=== PATIENT | female | born 1995 | race Caucasian/White ===

== ENCOUNTER → 2018-10-14 11:33 | Observation (INO) ==
[2018-10-14 09:57] LABS: Bilirubin,Urine Negative (Negative); Blood,Urine Negative (Negative); Clarity,Urine Clear (Clear); Color,Urine Yellow (Yellow); Glucose,Urine (UA) Normal (Normal); Ketones,Urine Negative (Negative); Leukocyte Esterase,Urine Negative (Negative); Nitrite,Urine Negative (Negative); PH,Urine 6.5 pH Units (5.0-8.0); Protein,Urine Negative (Neg-Trace); Urobilinogen,Urine Normal (Normal)
[2018-10-14 10:05] LABS: Amphetamine Screen,Urine Negative ng/mL (Cutoff=1000); Barbiturate Screen,Urine Negative ng/mL (Cutoff=200); Benzodiazepines Screen,Urine Negative ng/mL (Cutoff=200); Cannabinoid Screen,Urine Negative ng/mL (Cutoff = 50); Cocaine Screen,Urine Negative ng/mL (Cutoff= 300); Opiate Screen,Urine Negative ng/mL (Cutoff=300); Phencyclidine Screen,Urine Negative ng/mL (Cutoff=25)
--- NOTE | 2018-10-14 11:19 | Discharge Summary ---
Date of Encounter: 10/14/18 Time of Encounter: 11:18 - Discharge Diagnosis (1) 26 weeks gestation of Priority: Primary Status: Acute Comments: Patient admitted for observation UA WNL NO contractions noted some uterine irritability noted Patient reports the cramping has stopped Data Procedures and tests throughout hospitalization: Laboratory Tests 10/14/18 10/14/18 09:30 09:30 Urine Color Yellow Urine Clarity Clear Urine pH 6.5 Ur Specific Peck 1.010 Urine Protein Negative Urine Glucose (UA) Normal Urine Ketones Negative Urine Blood Negative Urine Nitrite Negative Urine Bilirubin Negative Urine Urobilinogen Normal Ur Leukocyte Esterase Negative Ur Culture Indicated? NO Urine Opiates Screen Negative Ur Barbiturates Screen Negative Ur Phencyclidine Scrn Negative Ur Amphetamines Screen Negative U Benzodiazepines Scrn Negative Urine Cocaine Screen Negative U Marijuana (THC) Screen Negative Ur Drug Screen Interp See Below Labs on day of discharge: Labs from last 24 hours 10/14/18 10/14/18 09:30 09:30 Urine Color Yellow Urine Clarity Clear Urine pH 6.5 Ur Specific Peck 1.010 Urine Protein Negative Urine Glucose (UA) Normal Urine Ketones Negative Urine Blood Negative Urine Nitrite Negative Urine Bilirubin Negative Urine Urobilinogen Normal Ur Leukocyte Esterase Negative Ur Culture Indicated? NO Urine Opiates Screen Negative Ur Barbiturates Screen Negative Ur Phencyclidine Scrn Negative Ur Amphetamines Screen Negative U Benzodiazepines Scrn Negative Urine Cocaine Screen Negative U Marijuana (THC) Screen Negative Ur Drug Screen Interp See Below Date of admission: 10/14/18 09:17 Discharging clinician: Tamara Villalba Anticipated date of discharge: 10/14/18 - Patient Status Disposition: Home, Self-Care Condition: Good Functional capacity at discharge: independent ambulation - Discharge Instructions Follow Up With: Rachel Cotto DO [Partnered Physician] - - Diet and Activity Activity: increase activity as tolerated Diet: regular diet Hospital Course MERCHANDISING LEAD Hospital course: Patient is a 22 y/o at 26w0d that presents to labor and delivery with complaints of cramping that started last night after intercourse. Patient reports cramping continued through the night but she was able to sleep. Patient denies LOF or VB. Patient reports +FM. After being monitored patient reports cramping seems to be gone at this time. Time Attestation: Total time spent providing and/or coordinating discharge services: Time Spent: Less than 30 minutes Exam - Constitutional General appearance IM: A&O X 3, pleasant, answers questions appropriately - Respiratory Respiratory exam: Present: CTAB - Cardiovascular Cardiovascular exam IM: Present: RRR, +S1, +S2 - GI/Abdominal GI/Abdominal exam IM: normal bowel sounds - Extremities Exam Extremities exam IM: Present: full ROM, normal capillary refill, normal inspection - Neurological Exam Neurological exam: alert, oriented X3, reflexes normal - Other Additional findings: FHR 140 bpm moderate variability No contractions noted. Appropriate for gestational age - VTE Reasons for not Prescribing Prophylaxis: Treatment not Indicated - Low risk for VTE
== END | disposition home or self-care (01) ==
LOC: 1NENULAB
PROVIDERS: ADMIT Obstetrics & Gynecology; ATTEND Obstetrics & Gynecology

== ENCOUNTER → 2018-11-28 16:50 | Observation (INO) ==
[2018-11-28 14:52] LABS: Bilirubin,Urine Negative (Negative); Blood,Urine Negative (Negative); Color,Urine Yellow (Yellow); Glucose,Urine (UA) Normal (Normal); Ketones,Urine Negative (Negative); Leukocyte Esterase,Urine Small (Negative); Nitrite,Urine Negative (Negative); PH,Urine 6.5 pH Units (5.0-8.0); Protein,Urine Trace mg/dL (Neg-Trace); Specific Gravity,Urine 1.016 (1.010-1.025); Urobilinogen,Urine Normal (Normal)
[2018-11-28 14:54] LABS: Bacteria,Urine Moderate per hpf (None-Few); Hyaline Casts,Urine None Seen per lpf (None-Few); Squamous Epithelial Cell,Urine Many per lpf (None-Few)
[2018-11-28 15:01] LABS: Clarity,Urine Hazy (Clear)
[2018-11-28 15:08] LABS: Amphetamine Screen,Urine Negative ng/mL (Cutoff=1000); Barbiturate Screen,Urine Negative ng/mL (Cutoff=200); Benzodiazepines Screen,Urine Negative ng/mL (Cutoff=200); Cannabinoid Screen,Urine Negative ng/mL (Cutoff = 50); Cocaine Screen,Urine Negative ng/mL (Cutoff= 300); Opiate Screen,Urine Negative ng/mL (Cutoff=300); Phencyclidine Screen,Urine Negative ng/mL (Cutoff=25)
--- NOTE | 2018-11-28 16:33 | OB/GYN Progress Note ---
Date of Encounter: 11/28/18 Time of Encounter: 16:30 - Assessment and Plan (1) 32 weeks gestation of Current Visit: Yes Status: Acute Educated on proper hydration and kick counts. Discharge home with return precautions. (2) Nausea Current Visit: Yes Status: Acute No vomiting. Nausea has resolved. (3) Dizziness Current Visit: Yes Status: Acute Pt reports dizzy spells this am but none since hydrating in triage. (4) Tachycardia Current Visit: Yes Status: Acute Pt reports tachycardia at home on her apple watch but she is not sure how accurate that is. Apical pulse 86 and regular at this time. Pt afebrile. (5) Gestational diabetes Current Visit: Yes Status: Acute Pt reports fasting blood sugars in the 80s. Report blood sugar 2 hours after eating never goes above 100. Qualifiers: Gestational diabetes mellitus control: diet-controlled Trimester: third trimester Qualified Code(s): O24.410 - Gestational diabetes mellitus in , diet controlled Subjective - Subjective Principal diagnosis: Nausea, dizziness, tachycardia Interval history: 23 y/o at 32w1d who presented with c/o of nausea, dizziness and feeling that her heart is racing that began this morning. Pt states she has been drinking water but "probably not enough". Reports dizziness is not associated with position change and she just feels "run down". Denies Contractions, LOF, or VB. Reports good FM. Antepartum ROS: new complaints, movement normal, no loss of fluid, no vaginal bleeding, no contractions Objective - Vital Signs Vital Signs: Intake and Output 11/28/18 11/28/18 11/28/18 07:59 15:59 23:59 Other: Weight 105.5 kg Patient Weight 11/28/18 23:59 Weight 105.5 kg - Exam FHR: category 1 FHR comments: NST reactive, FHR baseline 130bpm Auscultation: bilateral: normal Abdomen: Present: normal appearance, soft, gravid - Labs Labs: Abnormal lab results Urine Clarity Hazy (Clear) A 11/28/18 14:37 Ur Leukocyte Esterase Small (Negative) H 11/28/18 14:37 Urine Microscopic RBC 5-15 per hpf (0-3) H 11/28/18 14:37 Urine Microscopic WBC 5-15 per hpf (0-3) H 11/28/18 14:37 Ur Squamous Epith Cells Many per lpf (None-Few) H 11/28/18 14:37 Urine Bacteria Moderate per hpf (None-Few) H 11/28/18 14:37 Ur Culture Indicated? NO. (NO) A 11/28/18 14:37
== END | disposition home or self-care (01) ==
LOC: 1NENULAB
PROVIDERS: ADMIT Registered Nurse; ATTEND Registered Nurse

== ENCOUNTER → 2018-12-31 17:38 | Observation (INO) ==
[2018-12-31 14:36] LABS: Bilirubin,Urine Negative (Negative); Blood,Urine Negative (Negative); Clarity,Urine Cloudy (Clear); Color,Urine Yellow (Yellow); Glucose,Urine (UA) Normal (Normal); Ketones,Urine Negative (Negative); Leukocyte Esterase,Urine Moderate (Negative); Nitrite,Urine Negative (Negative); PH,Urine 6.5 pH Units (5.0-8.0); Protein,Urine Trace mg/dL (Neg-Trace); Specific Gravity,Urine 1.019 (1.010-1.025); Urobilinogen,Urine Normal (Normal)
[2018-12-31 14:40] LABS: Bacteria,Urine Moderate per hpf (None-Few); Hyaline Casts,Urine None Seen per lpf (None-Few); RBC,Urine 0-3 per hpf (0-3); Squamous Epithelial Cell,Urine Many per lpf (None-Few)
[2018-12-31 14:52] LABS: Basophils % 0.3 %; Eosinophils # 0.3 K/mcL (0.0-0.6); Eosinophils % 2.5 %; Hematocrit 34.2 % (35.3-44.9); Hemoglobin 11.5 g/dL (11.5-15.4); Immature Granulocytes % 0.5 % (0-4); Lymphocytes % 19.6 %; Mean Corpuscular HGB Conc 33.6 g/dL (31.6-35.5); Mean Corpuscular Volume 86.4 fL (83.0-100.0); Mean Platelet Volume 10.9 fL (9.4-12.4); Monocytes # 0.5 K/mcL (0.0-1.3); Monocytes % 4.6 %; Neutrophils # 7.4 K/mcL (1.6-8.9); Platelet Count 247 K/mcL (140-400); Red Blood Count 3.96 M/mcL (3.82-4.97); Red Cell Distribution Width 14.2 % (11.5-14.5); Segmented Neutrophils % 72.5 %
[2018-12-31 15:11] LABS: Amphetamine Screen,Urine Negative ng/mL (Cutoff=1000); Barbiturate Screen,Urine Negative ng/mL (Cutoff=200); Benzodiazepines Screen,Urine Negative ng/mL (Cutoff=200); Cannabinoid Screen,Urine Negative ng/mL (Cutoff = 50); Cocaine Screen,Urine Negative ng/mL (Cutoff= 300); Opiate Screen,Urine Negative ng/mL (Cutoff=300); Phencyclidine Screen,Urine Negative ng/mL (Cutoff=25)
[2018-12-31 15:12] VITALS: BP 136/85
[2018-12-31 15:42] LABS: Protein/Creatinine Ratio,Urine 0.16 mg/mg (0.00-0.20)
[2018-12-31 16:01] LABS: Alanine Aminotransferase 12 Units/L (7-52); Aspartate Amino Transferase 22 Units/L (13-39); BUN/Creatinine Ratio 13 (6-26); Blood Urea Nitrogen 8 mg/dL (6-20); Lactate Dehydrogenase 141 Units/L (140-271); Uric Acid 6.6 mg/dL (2.3-7.6); eGFR For Non-African Americans > 60 (> 60)
--- NOTE | 2018-12-31 17:18 | OB/GYN Progress Note ---
Date of Encounter: 12/31/18 Time of Encounter: 17:16 - Assessment and Plan (1) and not yet delivered in third trimester Current Visit: Yes Status: Acute (2) 36 weeks gestation of Current Visit: Yes Status: Acute (3) Hypertension affecting in third trimester Current Visit: Yes Status: Acute We will start patient on labetalol 100 mg twice a day first dose here on labor and delivery she will follow up with the end of the week for blood pressure check and visit. PIH precautions have been given to the patient. Subjective - Subjective Interval history: Patient is a 23-year-old 3 para 1011 at 36-6/7 weeks who presented to labor and delivery complaining of contractions headache and not feeling well. Patient has a history of precancer the first and she states this started the same way with persistent headache patient states she was at work started having severe pain to the point she could not walk they told her she needs come to the hospital to be evaluated. Upon arrival to labor and delivery patient was not having any contractions blood pressure is slightly elevated but she had this persistent headache that was not going away PIH labs were obtained and the patient they are all normal protein creatinine ratio was also normal. Blood pressures were basically normal 130s over 70s to as high as 140/90 nothing any higher. Patient states that she was induced at 37 weeks with her last due to severe preeclampsia. At this point patient does not show any signs of preeclampsia she is beginning to show some early signs of gestational hypertension of recommended starting on some labetalol. If blood pressure continues to be elevated with the labetalol she can then possibly be induced due to gestational hypertension not medically managed. Patient is already received Tylenol for headache. She not complaining of any contractions at this time no leaking of fluid no vaginal bleeding discharge itching or burning. Antepartum ROS: contractions, other (headache) Objective - Vital Signs Vital Signs: Vital Signs Pulse Resp BP 12/31/18 16:26 111 136/85 12/31/18 16:07 100 141/90 12/31/18 15:47 104 134/89 12/31/18 15:26 104 134/86 12/31/18 15:07 114 136/85 12/31/18 14:49 100 142/94 12/31/18 14:41 102 146/98 12/31/18 14:12 96 135/91 12/31/18 13:54 102 18 135/86 Intake and Output 12/31/18 12/31/18 12/31/18 07:59 15:59 23:59 Other: Weight 109.7 kg Patient Weight 12/31/18 23:59 Weight 109.7 kg - Exam FHR: category 1 FHR comments: heart tones 140s reactive occasional contractions seen Auscultation: bilateral: normal Abdomen: Present: normal appearance, soft, gravid Uterus: Present: normal Comments: No cervical exam performed patient is not emilia and states was only 1 cm last week did not feel a need to check her at this time since she is not emilia. - Labs Labs: Abnormal lab results Hct 34.2 % (35.3-44.9) L 12/31/18 14:08 Urine Clarity Cloudy (Clear) A 12/31/18 14:08 Ur Leukocyte Esterase Moderate (Negative) H 12/31/18 14:08 Urine Microscopic WBC 5-15 per hpf (0-3) H 12/31/18 14:08 Ur Squamous Epith Cells Many per lpf (None-Few) H 12/31/18 14:08 Urine Bacteria Moderate per hpf (None-Few) H 12/31/18 14:08 Ur Culture Indicated? NO. (NO) A 12/31/18 14:08 Urine Total Protein 22 mg/dL (1-14) H 12/31/18 14:08
[~2018-12-31 17:38] MED LIST: Acetaminophen 325 MG TABLET PO ONE
== END | disposition home or self-care (01) ==
LOC: 1NENULAB
PROVIDERS: ADMIT Advanced Practice Midwife; ATTEND Advanced Practice Midwife

== ENCOUNTER → 2019-01-04 13:37 | Observation (INO) ==
[2019-01-04 12:17] LABS: Basophils % 0.4 %; Eosinophils # 0.2 K/mcL (0.0-0.6); Eosinophils % 2.1 %; Hematocrit 35.3 % (35.3-44.9); Hemoglobin 11.8 g/dL (11.5-15.4); Immature Granulocytes % 0.4 % (0-4); Lymphocytes # 1.9 K/mcL (0.6-4.6); Lymphocytes % 18.4 %; Mean Corpuscular HGB Conc 33.4 g/dL (31.6-35.5); Mean Corpuscular Hemoglobin 28.9 pg (28.0-33.3); Mean Corpuscular Volume 86.5 fL (83.0-100.0); Mean Platelet Volume 10.6 fL (9.4-12.4); Monocytes # 0.7 K/mcL (0.0-1.3); Monocytes % 6.7 %; Neutrophils # 7.4 K/mcL (1.6-8.9); Platelet Count 254 K/mcL (140-400); Red Blood Count 4.08 M/mcL (3.82-4.97); Red Cell Distribution Width 14.3 % (11.5-14.5)
[2019-01-04 12:37] LABS: Alanine Aminotransferase 12 Units/L (7-52); Aspartate Amino Transferase 21 Units/L (13-39); BUN/Creatinine Ratio 14 (6-26); Blood Urea Nitrogen 8 mg/dL (6-20); Lactate Dehydrogenase 131 Units/L (140-271); Uric Acid 6.5 mg/dL (2.3-7.6); eGFR For Non-African Americans > 60 (> 60)
[2019-01-04 12:42] LABS: Protein/Creatinine Ratio,Urine 0.19 mg/mg (0.00-0.20)
[2019-01-04 12:43] LABS: Amphetamine Screen,Urine Negative ng/mL (Cutoff=1000); Barbiturate Screen,Urine Negative ng/mL (Cutoff=200); Benzodiazepines Screen,Urine Negative ng/mL (Cutoff=200); Cannabinoid Screen,Urine Negative ng/mL (Cutoff = 50); Cocaine Screen,Urine Negative ng/mL (Cutoff= 300); Opiate Screen,Urine Negative ng/mL (Cutoff=300); Phencyclidine Screen,Urine Negative ng/mL (Cutoff=25)
--- NOTE | 2019-01-04 13:29 | Discharge Summary ---
Date of Encounter: 01/04/19 Time of Encounter: 13:29 - Discharge Diagnosis (1) 37 weeks gestation of Priority: Primary Status: Acute Comments: admitted for observation for PIH evaluation (2) Proteinuria affecting in third trimester Priority: Secondary Status: Acute Comments: PIH labs and BPs WNL Discussed Lab results with Dr. Cotto (3) NST (non-stress test) reactive on surveillance Priority: Secondary Status: Acute Comments: FHR 125 bpm moderate variability +15x15 accels no decels noted. Cat. 1 tracing. - Discharge Medications Home Medications: Aspirin [[place] Aspirin EC] 1 tab PO DAILY 11/28/18 [History] Pnv95/Ferrous Fumarate/FA [ Vitamin Tablet] 1 tab PO DAILY 11/28/18 [History] Labetalol [Trandate] 100 mg PO BID #60 tablet 12/31/18 [Rx] Allergies/Adverse Reactions: Allergy/AdvReac Type Severity Reaction Status Date / Time No Known Allergies Allergy Verified 11/28/18 14:35 Data Procedures and tests throughout hospitalization: Laboratory Tests 01/04/19 01/04/19 01/04/19 11:49 11:56 11:56 WBC 10.2 RBC 4.08 Hgb 11.8 Hct 35.3 MCV 86.5 MCH 28.9 MCHC 33.4 RDW 14.3 Plt Count 254 MPV 10.6 Immature Gran % 0.4 Seg Neutrophils % 72.0 Lymphocytes % 18.4 Monocytes % 6.7 Eosinophils % 2.1 Basophils % 0.4 Neutrophils # 7.4 Lymphocytes # 1.9 Monocytes # 0.7 Eosinophils # 0.2 Basophils # 0.0 BUN Creatinine Est GFR ( Amer) Est GFR (Non-Af Amer) BUN/Creatinine Ratio Uric Acid AST ALT Lactate Dehydrogenase Urine Creatinine 233 Protein/Creatinin Ratio 0.19 Urine Total Protein 43 H Urine Opiates Screen Negative Ur Barbiturates Screen Negative Ur Phencyclidine Scrn Negative Ur Amphetamines Screen Negative U Benzodiazepines Scrn Negative Urine Cocaine Screen Negative U Marijuana (THC) Screen Negative Ur Drug Screen Interp See Below 01/04/19 11:56 WBC RBC Hgb Hct MCV MCH MCHC RDW Plt Count MPV Immature Gran % Seg Neutrophils % Lymphocytes % Monocytes % Eosinophils % Basophils % Neutrophils # Lymphocytes # Monocytes # Eosinophils # Basophils # BUN 8 Creatinine 0.58 L Est GFR ( Amer) > 60 Est GFR (Non-Af Amer) > 60 BUN/Creatinine Ratio 14 Uric Acid 6.5 AST 21 ALT 12 Lactate Dehydrogenase 131 L Urine Creatinine Protein/Creatinin Ratio Urine Total Protein Urine Opiates Screen Ur Barbiturates Screen Ur Phencyclidine Scrn Ur Amphetamines Screen U Benzodiazepines Scrn Urine Cocaine Screen U Marijuana (THC) Screen Ur Drug Screen Interp Labs on day of discharge: Labs from last 24 hours 01/04/19 01/04/19 01/04/19 11:56 11:56 11:56 WBC 10.2 RBC 4.08 Hgb 11.8 Hct 35.3 MCV 86.5 MCH 28.9 MCHC 33.4 RDW 14.3 Plt Count 254 MPV 10.6 Immature Gran % 0.4 Seg Neutrophils % 72.0 Lymphocytes % 18.4 Monocytes % 6.7 Eosinophils % 2.1 Basophils % 0.4 Neutrophils # 7.4 Lymphocytes # 1.9 Monocytes # 0.7 Eosinophils # 0.2 Basophils # 0.0 BUN 8 Creatinine 0.58 L Est GFR ( Amer) > 60 Est GFR (Non-Af Amer) > 60 BUN/Creatinine Ratio 14 Uric Acid 6.5 AST 21 ALT 12 Lactate Dehydrogenase 131 L Urine Creatinine 233 Protein/Creatinin Ratio 0.19 Urine Total Protein 43 H Urine Opiates Screen Ur Barbiturates Screen Ur Phencyclidine Scrn Ur Amphetamines Screen U Benzodiazepines Scrn Urine Cocaine Screen U Marijuana (THC) Screen Ur Drug Screen Interp 01/04/19 11:49 WBC RBC Hgb Hct MCV MCH MCHC RDW Plt Count MPV Immature Gran % Seg Neutrophils % Lymphocytes % Monocytes % Eosinophils % Basophils % Neutrophils # Lymphocytes # Monocytes # Eosinophils # Basophils # BUN Creatinine Est GFR ( Amer) Est GFR (Non-Af Amer) BUN/Creatinine Ratio Uric Acid AST ALT Lactate Dehydrogenase Urine Creatinine Protein/Creatinin Ratio Urine Total Protein Urine Opiates Screen Negative Ur Barbiturates Screen Negative Ur Phencyclidine Scrn Negative Ur Amphetamines Screen Negative U Benzodiazepines Scrn Negative Urine Cocaine Screen Negative U Marijuana (THC) Screen Negative Ur Drug Screen Interp See Below Date of admission: 01/04/19 11:25 Primary care physician: Nichol Woo CNP Discharging clinician: Tamara Villalba Anticipated date of discharge: 01/04/19 - Patient Status Disposition: Home, Self-Care Condition: Good Functional capacity at discharge: independent ambulation - Discharge Instructions Follow Up With: Nichol Woo, SOUND RECORDIST [Primary Care Provider] - Rachel Cotto DO [Partnered Physician] - Additional Instructions: LABOR AND DELIVERY DISCHARGE INSTRUCTIONS Signs and Symptoms to be Reported to your Doctor Immediately: * Sudden gush, continuous or intermittent lead of fluid from vagina (note the time of gush and color of fluid) * Onset of bright red vaginal bleeding with or without pain (if you had a vaginal exam during this visit you may notice some dark red spotting. This is normal.) * Lower abdominal cramping or backache that is premenstrual-like feeling. * More than 6 contractions in one hour. * Burning during urination, having to urinate more frequently or pain in your mid-back. * A change in the baby's activity. This could be an increase or decrease in activity. * Severe headache which does not go away with tylenol. * Sudden swelling in the face, hands, arms and/or legs. * Upper abdominal pain - sometimes associated with heartburn or nausea and is not relieved by Maalox, Mylanta or Tums. * Dizziness or blurred vision or visual disturbances (seeing stars/lights). * Kick Counts One hour after a meal, lay down on one side in a quiet place. Count the number of pat the baby moves during an hour. If less than 6 movements, notify your physician. Diet: *Force fluids - 8-10 tall glasses of fluid per day. May include popsicles and jello. 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 Cat. 1 tracing. Occasional contraction noted. - VTE Reasons for not Prescribing Prophylaxis: Treatment not Indicated - Low risk for VTE
== END | disposition home or self-care (01) ==
LOC: 1NENULAB
PROVIDERS: ADMIT Advanced Practice Midwife; ATTEND Advanced Practice Midwife